=== PATIENT | female | born 1975 | race Caucasian/White ===

== ENCOUNTER 2019-11-12 12:21 | Outpatient (CLI) | payer MEDICAID ==
--- NOTE | 2019-11-13 08:55 | Mammography Report ---
Reason: ROUTINE MAMMO Procedure Date: 11/12/2019 Accession Number: [id number] / [id number] Procedure: MGN - Screening Mammo Dig Bilat CPT Code: Final Report FULL RESULT: EXAM: Screening Mammo Dig Bilat DATE: 11/12/2019 12:45 PM CLINICAL HISTORY: Screening encounter. Baseline exam. TECHNIQUE: (B) - Bilateral CC and MLO views were obtained. COMPARISON: None PARENCHYMAL PATTERN: (A) - The breast(s) demonstrate(s) scattered fibroglandular densities. FINDINGS: A 4 mm isodense well-circumscribed nodules in the upper outer right breast axillary tail, 15 cm from the nipple, with suggestion of fatty hilum on 2-D images may represents typically benign lymph nodes but is not fully characterized. Additional focused right breast ultrasound is recommended for confirmation. There are no suspicious masses, calcifications, or areas of distortion. IMPRESSION: Incomplete examination. BI-RADS category 0. RECOMMENDATION: (ADDUS) - Targeted ultrasound recommended. Right breast. BI-RADS CATEGORY: (0) - Incomplete Examination - need additional evaluation. STANDARD QUALIFYING STATEMENTS: 1. This examination was not reviewed with the aid of Computer-Aided Detection (CAD). 2. A negative or benign imaging report should not preclude biopsy if clinically suspicious findings are present. 3. Dense breasts may obscure an underlying neoplasm. 4. This examination was reviewed without the aid of 3D breast imaging (tomosynthesis).
== END 2019-11-12 12:22 | disposition home or self-care (01) ==
LOC: DI.N 12:21
DX: Z12.31 Encounter for screening mammogram for malignant neoplasm of breast (principal); N63.11 Unspecified lump in the right breast, upper outer quadrant
CPT/HCPCS: 77067

== ENCOUNTER 2019-12-18 14:26 | Outpatient (CLI) | payer MEDICAID ==
--- NOTE | 2019-12-18 16:47 | Ultrasound Report ---
Reason: ABN MAMMO - RT SPEC VIEW US Procedure Date: 12/18/2019 Accession Number: [id number] / [id number] Procedure: US - Breast Unilateral Limited CPT Code: Final Report FULL RESULT: EXAM: Breast Unilateral Limited DATE: 12/18/2019 3:38 PM CLINICAL HISTORY: ABN MAMMO - RT SPEC VIEW US COMPARISON: 11/12/2019. TECHNIQUE: Targeted ultrasound was performed of the right breast in the area of clinical concern at 11 o'clock and 14 cm distance from the nipple. Color Doppler was employed as appropriate. FINDINGS: Morphologically normal-appearing lymph nodes with normal hilar flow by limited color Doppler and preserved fatty greg with a maximum size of 2.2 x 1.1 x 1.4 cm are identified along the axillary tail, typically benign. IMPRESSION: Benign findings RECOMMENDATION: Recommend routine annual Screening mammography unless otherwise clinically indicated. BIRADS CATEGORY 2: Benign findings RADIA
== END 2019-12-18 14:27 | disposition home or self-care (01) ==
LOC: DI 14:26
PROVIDERS: ATTEND Nurse Practitioner Family
DX: R92.8 Other abnormal and inconclusive findings on diagnostic imaging of breast (principal)
CPT/HCPCS: 76642

== ENCOUNTER 2020-12-17 08:00 | Outpatient (CLI) | payer MEDICAID ==
[2020-12-17 13:08] LABS: BASOPHILS # (AUTO) 0.1 10^3/uL (0.0-0.1); BASOPHILS % (AUTO) 0.6 %; EOSINOPHILS # (AUTO) 0.3 10^3/uL (0.0-0.7); EOSINOPHILS % (AUTO) 3.1 %; HGB - HEMOGLOBIN 12.9 g/dL (12.0-16.0); LYMPHOCYTES # (AUTO) 2.8 10^3/uL (1.5-3.5); LYMPHOCYTES % (AUTO) 35.1 %; MEAN CORPUSCULAR HEMOGLOBIN 29.3 pg (27.0-31.0); MEAN CORPUSCULAR VOLUME 94.3 fL (81.0-99.0); MEAN PLATELET VOLUME 12.1 fL (7.9-10.8); MONOCYTES # (AUTO) 0.7 10^3/uL (0.0-1.0); MONOCYTES % (AUTO) 9.3 %; NEUTROPHILS # (AUTO) 4.1 10^3/uL (1.5-6.6); NEUTROPHILS % (AUTO) 51.6 %; PLT - PLATELET COUNT 216 10^3/uL (130-450); RED BLOOD COUNT 4.41 10^6/uL (4.20-5.40); RED CELL DISTRIBUTION WIDTH 14.1 % (12.0-15.0); WHITE BLOOD COUNT 7.9 x10^3/uL (4.8-10.8)
[2020-12-17 15:52] LABS: BILIRUBIN,TOTAL 0.2 mg/dL (0.2-1.0)
[2020-12-17 15:53] LABS: ALBUMIN 3.8 g/dL (3.2-5.5); ALBUMIN/GLOBULIN RATIO 0.9 (1.0-2.2); ALKALINE PHOSPHATASE 60 IU/L (42-121); ALT ALANINE AMINOTRANSFERASE 13 IU/L (10-60); AST ASPARTATE AMINOTRANSFERASE 25 IU/L (10-42); BUN - BLOOD UREA NITROGEN 14 mg/dL (6-20); CALCIUM 8.6 mg/dL (8.5-10.3); CARBON DIOXIDE - CO2 22 mmol/L (21-32); CHLORIDE 108 mmol/L (101-111); CHOL/HDL RATIO 4.4 (<4.4); CHOLESTEROL 220 mg/dL; GLUCOSE 90 mg/dL (70-100); HDL CHOLESTEROL 50 mg/dL; LDL CHOLESTEROL,CALCULATED 147 mg/dL; LDL/HDL RATIO 2.9 (<4.4); TOTAL PROTEIN 7.9 g/dL (6.7-8.2); VLDL CHOLESTEROL 23 mg/dL
== END 2020-12-17 23:59 | disposition home or self-care (01) ==
LOC: LAB.WCP 08:00
PROVIDERS: ATTEND Nurse Practitioner Family
DX: Z00.00 Encounter for general adult medical examination without abnormal findings (principal)
CPT/HCPCS: 36415; 80053; 80061; 83721; 84443; 85025

== ENCOUNTER 2021-01-05 17:15 | Outpatient (CLI) | payer MEDICAID | END 2021-01-05 17:16 | disposition home or self-care (01) | LOC: COV 17:15 | PROVIDERS: ATTEND Family Medicine | DX: R05 Cough (principal); R06.02 Shortness of breath; M79.10 Myalgia, unspecified site; R53.83 Other fatigue; R09.81 Nasal congestion; Z20.822 Contact with and (suspected) exposure to COVID-19 ==

== ENCOUNTER 2021-01-06 16:36 | Inpatient (IN) | payer MEDICAID ==
[2021-01-06] MEDS ORDERED: ALBUTEROL 1 PUFF INH STA (17:28)
--- NOTE | 2021-01-06 17:33 | ED Physician Documentation ---
History of Present Illness - Stated complaint Stated Complaint: SOA - Chief complaint Chief Complaint: Resp - Additonal information Additional information: 45-year-old female presents the emergency department for evaluation of shortness of air. She reports that yesterday morning she began to feel like she was getting a cold. She had a sore throat some body aches and chest pressure. She did have a COVID-19 screen completed yesterday that was negative. Patient denies fevers any recent travel. Denies a history of lung disease, asthma or COPD. On presentation patient was wheezy after exertion. On room air her saturations were 86 to 88%. She was placed on 4 L nasal cannula with resultant rise of the saturations to 9192%. Mild tachypnea with respiratory rate of about 24. No stridor not labored. PMH: bipolar d/o. denies HTN, DM SOC: + vaping Review of Systems Constitutional: reports: Chills, Myalgias. denies: Fever Eyes: reports: Reviewed and negative Ears: reports: Reviewed and negative Nose: reports: Congestion Throat: reports: Sore throat Cardiac: denies: Chest pain / pressure, Palpitations Respiratory: reports: Dyspnea, Cough, Wheezing. denies: Hemoptysis GI: denies: Abdominal Pain, Abdominal Swelling, Nausea, Vomiting : denies: Dysuria Skin: denies: Rash, Lesions Musculoskeletal: denies: Neck pain, Back pain, Extremity pain Neurologic: denies: Generalized weakness, Focal weakness, Numbness PD PAST MEDICAL HISTORY - Allergies Allergies/Adverse Reactions: Allergies Allergy/AdvReac Type Severity Reaction Status Date / Time No Known Drug Allergies Allergy Verified 01/06/21 16:44 - Social History Does the pt smoke?: No Smoking Status: Never smoker PD ED PE EXPANDED - General General: Alert, Anxious - Cardiac Cardiac: Regular Rhythm, Radial strong equal, Pedal strong equal, Cap refill < 2 sec. No: Murmur Present - Respiratory Respiratory: Wheezing, Other (tachypnea with crackles in dependent bases). No: Distress, Labored - Abdomen Abdomen: Normal Bowel sounds. No: Tender to palpation - Extremities Extremities: Normal. No: Deformity, Tenderness - Neuro Neuro: Alert and Oriented X 3, CNII-XII intact - GCS Eye Opening: Spontaneous Motor: Obeys Commands Verbal: Oriented Total: 15 Results - Vitals Vitals: Vital Signs - 24 hr 01/06/21 01/06/21 01/06/21 16:40 17:34 18:00 Temperature 36.3 C L 36.7 C Heart Rate 119 H 108 H 102 H Respiratory 14 23 8 L Rate Blood Pressure 110/68 130/86 H 104/91 H O2 Saturation 88 L 92 92 01/06/21 01/06/21 01/06/21 18:30 19:00 19:30 Temperature Heart Rate 99 99 96 Respiratory 27 H 26 H 24 Rate Blood Pressure 111/96 H 121/97 H 115/99 H O2 Saturation 90 L 90 L 90 L 01/06/21 20:00 Temperature Heart Rate 95 Respiratory 25 H Rate Blood Pressure 111/97 H O2 Saturation 94 Oxygen O2 Source Nasal cannula - EKG (time done) 1722 Rate: Rate (enter#) (105) Rhythm: Sinus tachycardia [place]: Normal Intervals: Normal SC QRS: Low voltage Ischemia: Normal ST segments Compare to prior EKG: Old EKG unavailable Computer interpretation: Agree with computer - Labs Labs: Laboratory Tests 01/06/21 01/06/21 01/06/21 17:26 17:29 17:29 WBC 17.5 H RBC 3.93 L Hgb 11.7 L Hct 36.4 L MCV 92.6 MCH 29.8 MCHC 32.1 RDW 13.6 Plt Count 222 MPV 10.9 H Neut # (Auto) 15.3 H Lymph # (Auto) 1.1 L Yates # (Auto) 0.9 Eos # (Auto) 0.0 Baso # (Auto) 0.1 Absolute Nucleated RBC 0.00 Nucleated RBC % 0.0 D-Dimer VBG pH VBG pCO2 VBG pO2 VBG HCO3 VBG Total CO2 VBG O2 Saturation VBG Base Excess Sodium 131 L Potassium 3.6 Chloride 99 L Carbon Dioxide 22 Anion Gap 10.0 BUN 12 Creatinine 0.9 Estimated GFR (MDRD) 68 L Glucose 127 H Lactic Acid Calcium 8.2 L Total Bilirubin 0.5 AST 28 ALT 21 Alkaline Phosphatase 53 Troponin I High Sens B-Natriuretic Peptide Total Protein 7.1 Albumin 3.2 Globulin 3.9 Albumin/Globulin Ratio 0.8 L Lipase 28 Urine Color Urine Clarity Urine pH Ur Specific [place] Urine Protein Urine Glucose (UA) Urine Ketones Urine Occult Blood Urine Nitrite Urine Bilirubin Urine Urobilinogen Ur Leukocyte Esterase Urine RBC Urine WBC Ur Squamous Epith Cells Urine Bacteria Ur Microscopic Review Urine Culture Comments Nasal Adenovirus (PCR) NOT DETECTED Nasal B. parapertussis DNA (PCR) NOT DETECTED Nasal Coronavir 229E PCR NOT DETECTED Nasal Coronavir HKU1 PCR NOT DETECTED Nasal Coronavir NL63 PCR NOT DETECTED Nasal Coronavir OC43 PCR NOT DETECTED Nasal Enterovir/Rhinovir PCR NOT DETECTED Nasal Influenza B PCR NOT DETECTED Nasal Influenza A PCR NOT DETECTED Nasal Parainfluen 1 PCR NOT DETECTED Nasal Parainfluen 2 PCR NOT DETECTED Nasal Parainfluen 3 PCR NOT DETECTED Nasal Parainfluen 4 PCR NOT DETECTED Nasal RSV (PCR) NOT DETECTED Nasal B.pertussis DNA PCR NOT DETECTED Nasal C.pneumoniae (PCR) NOT DETECTED [place] Human Metapneumo PCR NOT DETECTED Nasal M.pneumoniae (PCR) NOT DETECTED Nasal SARS-CoV-2 (PCR) NOT DETECTED 01/06/21 01/06/21 01/06/21 17:29 17:29 17:35 WBC RBC Hgb Hct MCV MCH MCHC RDW Plt Count MPV Neut # (Auto) Lymph # (Auto) Yates # (Auto) Eos # (Auto) Baso # (Auto) Absolute Nucleated RBC Nucleated RBC % D-Dimer VBG pH 7.326 VBG pCO2 37.6 L VBG pO2 75.9 H VBG HCO3 19.2 L VBG Total CO2 20.4 L VBG O2 Saturation 95.0 H VBG Base Excess -6.2 L Sodium Potassium Chloride Carbon Dioxide Anion Gap BUN Creatinine Estimated GFR (MDRD) Glucose Lactic Acid 2.0 Calcium Total Bilirubin AST ALT Alkaline Phosphatase Troponin I High Sens B-Natriuretic Peptide Total Protein Albumin Globulin Albumin/Globulin Ratio Lipase Urine Color YELLOW Urine Clarity HAZY Urine pH 5.0 Ur Specific [place] >=1.030 H Urine Protein 30 H Urine Glucose (UA) NEGATIVE Urine Ketones NEGATIVE Urine Occult Blood LARGE H Urine Nitrite NEGATIVE Urine Bilirubin NEGATIVE Urine Urobilinogen 2 H Ur Leukocyte Esterase NEGATIVE Urine RBC None Seen Urine WBC 0-3 Ur Squamous Epith Cells MANY Squamous H Urine Bacteria Many H Ur Microscopic Review INDICATED Urine Culture Comments NOT INDICATED Nasal Adenovirus (PCR) Nasal B. parapertussis DNA (PCR) Nasal Coronavir 229E PCR Nasal Coronavir HKU1 PCR Nasal Coronavir NL63 PCR Nasal Coronavir OC43 PCR Nasal Enterovir/Rhinovir PCR Nasal Influenza B PCR Nasal Influenza A PCR Nasal Parainfluen 1 PCR Nasal Parainfluen 2 PCR Nasal Parainfluen 3 PCR Nasal Parainfluen 4 PCR Nasal RSV (PCR) Nasal B.pertussis DNA PCR Nasal C.pneumoniae (PCR) Jeffry Human Metapneumo PCR Nasal M.pneumoniae (PCR) Nasal SARS-CoV-2 (PCR) 01/06/21 01/06/21 01/06/21 17:39 17:39 17:42 WBC RBC Hgb Hct MCV MCH MCHC RDW Plt Count MPV Neut # (Auto) Lymph # (Auto) Yates # (Auto) Eos # (Auto) Baso # (Auto) Absolute Nucleated RBC Nucleated RBC % D-Dimer 855.7 H VBG pH VBG pCO2 VBG pO2 VBG HCO3 VBG Total CO2 VBG O2 Saturation VBG Base Excess Sodium Potassium Chloride Carbon Dioxide Anion Gap BUN Creatinine Estimated GFR (MDRD) Glucose Lactic Acid Calcium Total Bilirubin AST ALT Alkaline Phosphatase Troponin I High Sens 59.2 H* B-Natriuretic Peptide 159 H Total Protein Albumin Globulin Albumin/Globulin Ratio Lipase Urine Color Urine Clarity Urine pH Ur Specific [place] Urine Protein Urine Glucose (UA) Urine Ketones Urine Occult Blood Urine Nitrite Urine Bilirubin Urine Urobilinogen Ur Leukocyte Esterase Urine RBC Urine WBC Ur Squamous Epith Cells Urine Bacteria Ur Microscopic Review Urine Culture Comments Nasal Adenovirus (PCR) Nasal B. parapertussis DNA (PCR) Nasal Coronavir 229E PCR Nasal Coronavir HKU1 PCR Nasal Coronavir NL63 PCR Nasal Coronavir OC43 PCR Nasal Enterovir/Rhinovir PCR Nasal Influenza B PCR Nasal Influenza A PCR Nasal Parainfluen 1 PCR Nasal Parainfluen 2 PCR Nasal Parainfluen 3 PCR Nasal Parainfluen 4 PCR Nasal RSV (PCR) Nasal B.pertussis DNA PCR Nasal C.pneumoniae (PCR) [place] Human Metapneumo PCR Nasal M.pneumoniae (PCR) Nasal SARS-CoV-2 (PCR) - Rads (name of study) CXR Radiology: Final report received (Mild acute CHF pattern. Heart size at or just above the upper limits of normal.) CT pulmonary angio Radiology: Final report received (No pulmonary embolus. Negative evaluation of the aorta. Moderate bilateral bronchopneumonia trace parapneumonic effusions. Hiatal hernia. Presumably reactive mediastinal and hilar lymph node enlargement.) PD MEDICAL DECISION MAKING - ED course Complexity details: reviewed results, re-evaluated patient, considered differential, d/w patient ED course: 45-year-old female presents to the emergency department with shortness of air and wheeze. She began to feel like she was getting a cold yesterday afternoon. She did have outpatient Covid screening which was negative. However on pres entation here she was noted to be somewhat tachypneic on initial presentation and had an expiratory wheeze after exertion that resolved with bed rest. Unfortunately she was hypoxic on room air with a saturation of 86%. 4 L oxygen nasal cannula improved her saturations to 90-91%%. Screening x-ray suggests an early CHF pattern with mild cardiomegaly. Her BNP is just above 150. EKG was sinus tach without ischemic changes and her high- sensitivity troponin was 50. She is also noted to have moderate leukocytosis with a white count of almost 18,000. Lactate was not elevated. Given this CHF pattern on chest x-ray as well as early hypoxia I did proceed to do a CT pulmonary angio to rule out a PE and right heart strain that could be causing the symptoms. Reassuringly the CT did not show any pulmonary embolus however it is suggestive of bilateral bronchopneumonia and para pneumonic effusions. Given CHF picture pt was given 40 mg lasix in the ED. Though the CXR is more suggestive of a viral pneumonitis pattern, we did also give ceftriaxone and azithromycin. Pt will be admitted to the hospital for acute hypoxia, CHF and soa. I have spoken with Dr. Verduzco who agrees to admit patient. Departure - Departure Disposition: 66 [facility] DC/Xfer Clinical Impression: Hypoxia, Elevated troponin CHF (congestive heart failure) Qualifiers: Heart failure type: unspecified Heart failure chronicity: acute Qualified Code(s): I50.9 - Heart failure, unspecified
--- NOTE | 2021-01-06 17:37 | XRAY Report ---
PROCEDURE: Chest 1 View X-Ray INDICATIONS: hypoxia TECHNIQUE: One view of the chest was acquired. COMPARISON: None FINDINGS: Surgical changes and devices: None. Lungs and pleura: No pleural effusions or pneumothorax. Lungs are abnormal with a mild edema patter n throughout.. Mediastinum: Mediastinal contours appear normal. Heart size is at or just above the upper limits of normal. Bones and chest wall: No suspicious bony lesions. Overlying soft tissues appear unremarkable. IMPRESSION: Mild acute CHF pattern. Heart size at or just above the upper limits of normal. Reviewed by: Edilberto Thomas MD on 01/06/2021 4:36 PM [facility] Approved by: Edilberto Thomas MD on 01/06/2021 4:36 PM [facility] Station ID: [id number]
[2021-01-06] MEDS ORDERED: IOVERSOL 320 100 ML VIAL IVP ONE ×3 (17:39→19:07)
[2021-01-06 17:42] LABS: BASOPHILS # (AUTO) 0.1 10^3/uL (0.0-0.1); BASOPHILS % (AUTO) 0.3 %; EOSINOPHILS % (AUTO) 0.1 %; HCT - HEMATOCRIT 36.4 % (37.0-47.0); HGB - HEMOGLOBIN 11.7 g/dL (12.0-16.0); LYMPHOCYTES # (AUTO) 1.1 10^3/uL (1.5-3.5); LYMPHOCYTES % (AUTO) 6.1 %; MEAN CORPUSCULAR HEMOGLOBIN 29.8 pg (27.0-31.0); MEAN CORPUSCULAR HGB CONC 32.1 g/dL (32.0-36.0); MEAN CORPUSCULAR VOLUME 92.6 fL (81.0-99.0); MEAN PLATELET VOLUME 10.9 fL (7.9-10.8); MONOCYTES # (AUTO) 0.9 10^3/uL (0.0-1.0); MONOCYTES % (AUTO) 5.4 %; NEUTROPHILS # (AUTO) 15.3 10^3/uL (1.5-6.6); NEUTROPHILS % (AUTO) 87.5 %; PLT - PLATELET COUNT 222 10^3/uL (130-450); RED BLOOD COUNT 3.93 10^6/uL (4.20-5.40); RED CELL DISTRIBUTION WIDTH 13.6 % (12.0-15.0); VBG BASE EXCESS -6.2 mmol/L (-2 - +2); VBG HCO3 19.2 mmol/L (23-28); VBG PCO2 37.6 mmHg (41-51); VBG PH 7.326 (7.31-7.41); VBG PO2 75.9 mmHg (25-47); VBG TOTAL CO2 20.4 mmol/L (24-29); WHITE BLOOD COUNT 17.5 x10^3/uL (4.8-10.8)
[2021-01-06 17:57] LABS: ALBUMIN 3.2 g/dL (3.2-5.5); ALBUMIN/GLOBULIN RATIO 0.8 (1.0-2.2); BILIRUBIN,TOTAL 0.5 mg/dL (0.2-1.0); CALCIUM 8.2 mg/dL (8.5-10.3); CREATININE 0.9 mg/dL (0.4-1.0); POTASSIUM 3.6 mmol/L (3.5-5.0); TOTAL PROTEIN 7.1 g/dL (6.7-8.2)
[2021-01-06 18:38] LABS: BILIRUBIN,URINE NEGATIVE (NEGATIVE); GLUCOSE, URINE (UA) NEGATIVE (NEGATIVE); KETONES,URINE (UA) NEGATIVE (NEGATIVE); LEUKOCYTE ESTERASE, URINE NEGATIVE (NEGATIVE); NITRITE,URINE NEGATIVE (NEGATIVE); OCCULT BLOOD,URINE LARGE (NEGATIVE); PROTEIN,URINE 30 mg/dL (NEGATIVE); UROBILINOGEN,URINE 2 E.U./dL (NORMAL)
[2021-01-06 18:51] LABS: CLARITY,URINE HAZY (CLEAR)
[2021-01-06 18:53] LABS: BACTERIA,URINE Many /HPF (None Seen); RBC,URINE None Seen /HPF (0-5); SQUAMOUS EPITHELIAL CELL,UR MANY Squamous (<= Few); WBC,URINE 0-3 /HPF (0-5)
[2021-01-06 18:54] LABS: B. PARAPERTUSSIS- RESP PCR PAN NOT DETECTED; B. PERTUSSIS- RESP PCR PANEL NOT DETECTED; C. PNEUMONIAE- RESP PCR PANEL NOT DETECTED; CORONAVIRUS 229E-RESP PCR NOT DETECTED; CORONAVIRUS HKU1-RESP PCR NOT DETECTED; CORONAVIRUS NL63-RESP PCR NOT DETECTED; CORONAVIRUS OC43-RESP PCR NOT DETECTED; HUMAN METAPNEUMOVIRUS NOT DETECTED; INFLUENZA A- RESP PCR PANEL NOT DETECTED; INFLUENZA B - RESP PCR PANEL NOT DETECTED; M. PNEUMONIAE- RESP PCR PANEL NOT DETECTED; PARAINFLUENZA VIRUS 1 NOT DETECTED; PARAINFLUENZA VIRUS 2 NOT DETECTED; PARAINFLUENZA VIRUS 3 NOT DETECTED; PARAINFLUENZA VIRUS 4 NOT DETECTED; RHINOVIRUS/ENTEROVIRUS NOT DETECTED; RSV- RESP PCR PANEL NOT DETECTED; SARS-CoV-2 -RESP PCR PANEL NOT DETECTED
--- NOTE | 2021-01-06 19:26 | CT Report ---
PROCEDURE: CT angiography of the with contrast. INDICATIONS: hypoxia; CHF; r/o PE CONTRAST: IV CONTRAST: Optiray 320 ml: 80 PO CONTRAST: *NO PO CONTRAST TECHNIQUE: After the administration of intravenous contrast, 2 mm thick sections acquired from the pulmonary api dann to the posterior costophrenic angles. 3-dimensional maximum intensity projection (MIP) coronal a nd sagittal reformats were then acquired through the thorax. For radiation dose reduction, the follow ing was used: automated exposure control, adjustment of mA and/or kV according to patient size. COMPARISON: Chest x-ray dated 01/06/2021 FINDINGS: Image quality: Excellent. Pulmonary arteries: Pulmonary arteries are normal in size, and demonstrate no intraluminal filling d efects to suggest central pulmonary embolism. chest Lungs and pleura: Bilateral moderate diffuse bronchial wall thickening is present. There is moderate diffuse groundglass pulmonary opacity, as well as thickening of the interlobular septae. No pneumotho rax. Trace bilateral pleural effusions. Central and peripheral airways are patent. Mediastinum: Heart size is normal, without pericardial effusion. Mildly enlarged mediastinal and sub carinal lymph nodes, largest of which is in the subcarinal location measuring 15 mm short axis. Thora cic aorta is normal in caliber and enhancement. Esophagus is normal in caliber. Moderate hiatal ankita ia. Bones and chest wall: No suspicious bony lesions. Ribs and thoracic spine appear intact through out. The thyroid is normal. No axillary or supraclavicular adenopathy. Abdomen: Visualized upper abdominal solid organs appear normal in the early arterial phase of enhanc ement. IMPRESSION: 1. No pulmonary embolus. Negative evaluation of the aorta. 2. Moderate bilateral bronchopneumonia trace parapneumonic effusions. 3. Hiatal hernia. 4. Presumably reactive mediastinal and hilar lymph node enlargement. Follow-up chest CT with contrast in 3 months is recommended to ensure resolution, and to exclude underlying neoplasm. Reviewed by: Jeanie Ng MD on 01/06/2021 7:25 PM PST Approved by: Jeanie Ng MD on 01/06/2021 7:25 PM PST Station ID: [id number]
[2021-01-06] MEDS ORDERED: FUROSEMIDE 40 MG/4 ML VIAL IVP STA (19:55)
[2021-01-06] MEDS ORDERED: AZITHROMYCIN INJ 500 MG in SODIUM CHLORIDE 0.9% 250 ML IV STA (19:58)
[2021-01-06] MEDS ORDERED: cefTRIAXone 1 GM in SODIUM CHLORIDE 0.9% MINIBAG 100 ML IV STA (19:58)
[2021-01-06] MEDS ORDERED: cefTRIAXone 1 GM VIAL ONE (20:31)
[2021-01-06] MEDS ORDERED: ONDANSETRON 4 MG/2 ML VIAL IVP PRN (20:46)
[2021-01-06] MEDS ORDERED: SODIUM CHLORIDE FLUSH 0.9% 10 ML SYRINGE IVP PRN (20:46)
[2021-01-06] MEDS ORDERED: LEVALBUTEROL 1.25 MG/3 ML NEB INH PRN (20:56)
[2021-01-06] MEDS: SODIUM CHLORIDE 0.9% 1,000 ML IV SCH (22:25)
[2021-01-06] MEDS: FAMOTIDINE 20 MG TABLET PO SCH (22:25)
[2021-01-06] MEDS: ACETAMINOPHEN 325 MG TABLET PO PRN (22:25)
[2021-01-06] MEDS: QUEtiapine 25 MG TABLET PO SCH (23:44)
[2021-01-06] MEDS: SODIUM CHLORIDE FLUSH 0.9% 10 ML SYRINGE IVP SCH (23:47)
--- NOTE | 2021-01-07 00:54 | HISTORY & PHYSICAL EXAMINATION ---
DATE OF SERVICE: 01/06/2021 Physician: Fanny Brandon MD HISTORY OF PRESENT ILLNESS: This is a 45-year-old white female with a history of anxiety for which she takes Seroquel at night. She has a history of alcohol abuse, reports that she used to drink daily. She states she was in a very bad marriage and this caused the drinking, along with stress at work. She is now one year and is in a relationship with a new significant other and has had no alcohol intake for about a year, thanks to his support. She moved to [place] about a year ago, to take care of a new grandchild and help her daughter, [email or web address]. The patient presents with two days of upper respiratory symptoms including a cough, hoarseness, sputum production, nasal congestion with nasal discharge, and fatigue, for which she underwent COVID testing yesterday and came back negative. Today, she had continued symptoms, plus was short of breath and presented to the emergency room. In the ER, she was documented to have an oxygen saturation on room of 86%. Exam in the ER showed that she was wheezing and had crackles, and was tachypneic with a respiratory rate of 25. She underwent testing showing that she was COVID negative again today, chest x-ray showing CHF vs bilateral interstitial infiltrates. She had a D-dimer that was elevated, and underwent a CTA chest that showed no evidence of pulmonary embolism, but the findings in both lungs were read as having bilateral bronchopneumonia. The patient is being admitted to inpatient status for empiric IV antibiotics for bilateral bronchopneumonia, which is likely atypical viral pneumonia, and needing supplemental oxygen treatment, but is COVID negative. PAST MEDICAL HISTORY 1. Alcohol abuse, but with no alcohol intake over the past one year. 2. Anxiety for which she is on Seroquel at bedtime. ALLERGIES: NONE. MEDICATIONS: Seroquel 50 mg daily. Mucinex OTC. The full medication list has not yet been reconciled by Pharmacy. FAMILY HISTORY: No inherited diseases. SOCIAL HISTORY: The patient vapes, but does not smoke, she has had no alcohol intake for one year. There is no illicit drug use history. 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 REVIEW OF SYSTEMS: She denies having had a fever, she has never had symptoms like this before. She has not had a known COVID exposure. A comprehensive review of systems was performed and the pertinent positives are listed, the rest are negative. PHYSICAL EXAM GENERAL: Middle-aged white female, who is in no respiratory distress at rest and has a hoarse voice and wet cough. VITAL SIGNS: Blood pressure 102/91, pulse 119 in sinus rhythm, now heart rate is down to 95. She is afebrile. Respiratory rate was as high as 27 and is now down to 18 and O2 saturation was 86% on room air, now up to 95% on 4 liters oxygen by nasal cannula. HEENT: Reveals moist oral mucosa. Her voice is hoarse. NECK: No JVD. CHEST: No wheezing currently, good air movement, but has scattered rhonchi. No rales. HEART: No murmurs or gallop. ABDOMEN: Soft, nontender. No organomegaly. EXTREMITIES: No clubbing, cyanosis or edema. NEUROLOGIC: Grossly intact. LABORATORY DATA: Sodium 131, potassium 3.6, glucose 127. Lactic acid 2.0 and on repeat 1.6. Troponin 59 and on repeat 68. BNP 159. Normal liver tests. White blood count elevated at 17.5, hemoglobin 11.7, platelet count normal at 222. No INR was done. D-dimer was 855. Venous blood gas had a pH of 7.32 and a pCO2 of 37. Urinalysis showed specific gravity greater than 1.03 with high protein, large occult blood, high urobilinogen, but many squamous cells. Her [employer] test was negative for everything including COVID. EKG: Sinus tachycardia at rate of 105, low voltage in all leads, T-wave flattening in the inferior leads. There is no old EKG for comparison. IMAGING: Chest x-ray showed possible CHF pattern and heart size upper limits of normal. CTA of the chest showed no pulmonary embolus and negative aortic evaluation, moderate bilateral bronchopneumonia and trace parapneumonic effusions. Also present was a hiatal hernia and presumed reactive mediastinal and hilar lymph nodes that are enlarged, and a follow-up chest CT was advised. IMPRESSION/DIAGNOSES 1. Acute respiratory failure with hypoxia. 2. Bilateral bronchopneumonia, probably viral in its presentation with nasal discharge, but consider community acquired bacterial pneumonia. 3. Hyponatremia. 4. Elevated troponin. 5. Anemia. 6. Vapes. PLAN: Admit this patient to inpatient status on telemetry. She got Lasix in the ER because of the first impression on chest x-ray of CHF and mildly increased BNP, but by exam, she is euvolemic or hypovolemic with probable hypovolemic hyponatremia. Therefore, we will start gentle IV fluids and give no more Lasix. We will continue with the empiric IV ceftriaxone and give oral Zithromax for a full course of 1500 mg. Obtain sputum culture. Continue with Mucinex for pulmonary toilet. Taper down oxygen as tolerated. Follow her magnesium because of getting a Lasix dose. Plan was to cycle troponins, but with two done that are not doubling, she has ruled out for an SD. Obtain an Echocardiogram to establish LV and RV contractility because of the suspicion of congestive heart failure. Continue with nebulizers p.r.n. because of the wheezing. Tobacco use is not advised and we will give a nicotine patch p.r.n. nicotine urges. Follow her CBC, white blood count and hemoglobin and follow her electrolytes for hopeful correction of the low sodium. DEEP VENOUS THROMBOSIS PROPHYLAXIS: SCDs. CODE STATUS: FULL CODE. ATTESTATION: Patient is expected to be discharged or transferred to another facility within 96 hours: Yes. cc: MALOU Brumfield TD: 01/06/2021 23:35 MTDD
[2021-01-07 05:04] LABS: BASOPHILS % (AUTO) 0.2 %; EOSINOPHILS % (AUTO) 0.1 %; HCT - HEMATOCRIT 32.6 % (37.0-47.0); HGB - HEMOGLOBIN 10.4 g/dL (12.0-16.0); LYMPHOCYTES # (AUTO) 1.6 10^3/uL (1.5-3.5); MEAN CORPUSCULAR HEMOGLOBIN 29.8 pg (27.0-31.0); MEAN CORPUSCULAR HGB CONC 31.9 g/dL (32.0-36.0); MEAN CORPUSCULAR VOLUME 93.4 fL (81.0-99.0); MEAN PLATELET VOLUME 11.5 fL (7.9-10.8); MONOCYTES # (AUTO) 0.9 10^3/uL (0.0-1.0); MONOCYTES % (AUTO) 7.9 %; NEUTROPHILS # (AUTO) 8.7 10^3/uL (1.5-6.6); NEUTROPHILS % (AUTO) 77.5 %; PLT - PLATELET COUNT 214 10^3/uL (130-450); RED BLOOD COUNT 3.49 10^6/uL (4.20-5.40); RED CELL DISTRIBUTION WIDTH 13.7 % (12.0-15.0); WHITE BLOOD COUNT 11.2 x10^3/uL (4.8-10.8)
[2021-01-07 05:19] LABS: CALCIUM 8.1 mg/dL (8.5-10.3); CREATININE 0.7 mg/dL (0.4-1.0); MAGNESIUM 1.8 mg/dL (1.7-2.8); POTASSIUM 3.1 mmol/L (3.5-5.0)
--- NOTE | 2021-01-07 07:28 | PROVIDER PROGRESS NOTE ---
Assessment/Plan - Problem List (1) Bronchopneumonia Assessment/Plan: Patient is on Rocephin and azithromycin IV. Will continue. Patient's white blood cell count improved from 17.5 down to 11.2. Patient is breathing comfortably on room air with O2Sat at 100%. DuoNeb breathing treatments ordered as needed. (2) Elevated troponin Assessment/Plan: Possibly due to demand ischemia. Troponin trend was 59.2, 68.8 and 31.5 respectively. Patient's BNP was 227. 2D echocardiogram pending. (3) Acute respiratory failure with hypoxia Assessment/Plan: Likely secondary to pneumonia. We will also rule out any cardiac cause with a 2D echocardiogram. CT angiogram of the chest was negative for PE. - Current Meds Current Meds: Current Medications Generic Name Dose Route Start Last Admin Trade Name Freq PRN Reason Stop Dose Admin Acetaminophen 650 mg 01/06/21 20:46 01/06/21 22:25 Acetaminophen 325 Mg Tablet PO 650 mg Q4HR PRN Administration Pain or Fever > 38C (100.4F) Famotidine 20 mg 01/06/21 21:00 01/06/21 22:25 Famotidine 20 Mg Tablet PO 20 mg BID VON Administration Sodium Chloride 1,000 mls @ 40 mls/hr 01/06/21 21:00 01/06/21 22:25 Normal Saline 0.9% IV 40 mls/hr .Q25H VON Administration Quetiapine Fumarate 50 mg 01/06/21 22:31 01/06/21 23:44 Quetiapine 25 Mg Tablet PO 50 mg QPM VON Administration Sodium Chloride 10 ml 01/07/21 01:00 01/06/21 23:47 Sodium Chloride Flush 0.9% 10 Ml Syringe IVP Not Given 0100,0900,1700 VON - Lab Result Fish Bone Diagrams: 01/07/21 04:17 01/07/21 04:17 Subjective - Subjective Patient Reports: Other (Patient resting comfortably in bed at time of exam. She is breathing comfortably on room air. She has mild crackles on auscultation of the left lungs. She also reports feeling mild chest tightness. She denies any other symptoms.) Objective Vital Signs: Vital Signs - 24 hr 01/06/21 01/06/21 01/06/21 16:40 17:34 18:00 Temperature 36.3 C L 36.7 C Heart Rate 119 H 108 H 102 H Heart Rate [ Brachial] Respiratory 14 23 8 L Rate Blood Pressure 110/68 130/86 H 104/91 H Blood Pressure [Left Brachial artery] O2 Saturation 88 L 92 92 01/06/21 01/06/21 01/06/21 18:30 19:00 19:30 Temperature Heart Rate 99 99 96 Heart Rate [ Brachial] Respiratory 27 H 26 H 24 Rate Blood Pressure 111/96 H 121/97 H 115/99 H Blood Pressure [Left Brachial artery] O2 Saturation 90 L 90 L 90 L 01/06/21 01/06/21 01/06/21 20:00 20:30 21:00 Temperature Heart Rate 95 85 95 Heart Rate [ Brachial] Respiratory 25 H 26 H 24 Rate Blood Pressure 111/97 H 124/88 H 102/91 H Blood Pressure [Left Brachial artery] O2 Saturation 94 95 92 01/06/21 01/07/21 01/07/21 21:57 00:00 04:42 Temperature 37.2 C 37.1 C 36.9 C Heart Rate Heart Rate [ 96 80 74 Brachial] Respiratory 18 18 18 Rate Blood Pressure Blood Pressure 115/77 106/67 97/66 [Left Brachial artery] O2 Saturation 98 94 94 01/07/21 06:32 Temperature 37.1 C Heart Rate 80 Heart Rate [ Brachial] Respiratory 18 Rate Blood Pressure Blood Pressure [Left Brachial artery] O2 Saturation 94 Oxygen O2 Source Room air I&O (Last 24 Hrs): Intake and Output Totals x24h 01/05/21 01/06/21 01/07/21 23:59 23:59 23:59 Intake Total 830 Output Total 900 Balance -70 General: Alert, Oriented x3, No acute distress HEENT: PERRLA, EOMI Neck: Supple, No JVD Neuro: Alert, Non Focal, Oriented Times 3 Cardiovascular: Regular rate Respiratory: Chest non-tender, Other (mild crackles on left side of lungs.) Abdomen: Normal bowel sounds, Soft, No tenderness, No masses Extremities: No clubbing, No edema Skin: No rashes, No breakdown - Results Results: Laboratory Results WBC 11.2 x10^3/uL (4.8-10.8) H 01/07/21 04:17 RBC 3.49 10^6/uL (4.20-5.40) L 01/07/21 04:17 Hgb 10.4 g/dL (12.0-16.0) L 01/07/21 04:17 Hct 32.6 % (37.0-47.0) L 01/07/21 04:17 MCV 93.4 fL (81.0-99.0) 01/07/21 04:17 MCH 29.8 pg (27.0-31.0) 01/07/21 04:17 MCHC 31.9 g/dL (32.0-36.0) L 01/07/21 04:17 RDW 13.7 % (12.0-15.0) 01/07/21 04:17 Plt Count 214 10^3/uL (130-450) 01/07/21 04:17 MPV 11.5 fL (7.9-10.8) H 01/07/21 04:17 Neut # (Auto) 8.7 10^3/uL (1.5-6.6) H 01/07/21 04:17 Lymph # (Auto) 1.6 10^3/uL (1.5-3.5) 01/07/21 04:17 [place]more # (Auto) 0.9 10^3/uL (0.0-1.0) 01/07/21 04:17 Eos # (Auto) 0.0 10^3/uL (0.0-0.7) 01/07/21 04:17 Baso # (Auto) 0.0 10^3/uL (0.0-0.1) 01/07/21 04:17 Absolute Nucleated RBC 0.00 x10^3/uL 01/07/21 04:17 Nucleated RBC % 0.0 /100WBC 01/07/21 04:17 D-Dimer 855.7 ng/mL (200.0-255.0) H 01/06/21 17:42 VBG pH 7.326 (7.31-7.41) 01/06/21 17:29 VBG pCO2 37.6 mmHg (41-51) L 01/06/21 17:29 VBG pO2 75.9 mmHg (25-47) H 01/06/21 17:29 VBG HCO3 19.2 mmol/L (23-28) L 01/06/21 17:29 VBG Total CO2 20.4 mmol/L (24-29) L 01/06/21 17:29 VBG O2 Saturation 95.0 % (60-80) H 01/06/21 17:29 VBG Base Excess -6.2 mmol/L (-2 - +2) L 01/06/21 17:29 Sodium 132 mmol/L (135-145) L 01/07/21 04:17 Potassium 3.1 mmol/L (3.5-5.0) L 01/07/21 04:17 Chloride 100 mmol/L (101-111) L 01/07/21 04:17 Carbon Dioxide 24 mmol/L (21-32) 01/07/21 04:17 Anion Gap 8.0 (6-13) 01/07/21 04:17 BUN 11 mg/dL (6-20) 01/07/21 04:17 Creatinine 0.7 mg/dL (0.4-1.0) 01/07/21 04:17 Estimated GFR (MDRD) 90 (>89) 01/07/21 04:17 Glucose 95 mg/dL (70-100) 01/07/21 04:17 Lactic Acid 1.6 mmol/L (0.5-2.2) 01/06/21 20:45 Calcium 8.1 mg/dL (8.5-10.3) L 01/07/21 04:17 Magnesium 1.8 mg/dL (1.7-2.8) 01/07/21 04:17 Total Bilirubin 0.5 mg/dL (0.2-1.0) 01/06/21 17:29 AST 28 IU/L (10-42) 01/06/21 17:29 ALT 21 IU/L (10-60) 01/06/21 17:29 Alkaline Phosphatase 53 IU/L (42-121) 01/06/21 17:29 Troponin I High Sens 31.5 ng/L (2.3-14.8) H* 01/07/21 04:17 B-Natriuretic Peptide 227 pg/mL (5-100) H 01/07/21 04:17 Total Protein 7.1 g/dL (6.7-8.2) 01/06/21 17:29 Albumin 3.2 g/dL (3.2-5.5) 01/06/21 17: Globulin 3.9 g/dL (2.1-4.2) 01/06/21 17: Albumin/Globulin Ratio 0.8 (1.0-2.2) L 01/06/21 17:29 Lipase 28 U/L (22-51) 01/06/21 17:29 Urine Color YELLOW 01/06/21 17:35 Urine Clarity HAZY (CLEAR) 01/06/21 17:35 Urine pH 5.0 PH (5.0-7.5) 01/06/21 17:35 Ur Specific [place] >=1.030 (1.002-1.030) H 01/06/21 17:35 Urine Protein 30 mg/dL (NEGATIVE) H 01/06/21 17:35 Urine Glucose (UA) NEGATIVE mg/dL (NEGATIVE) 01/06/21 17:35 Urine Ketones NEGATIVE mg/dL (NEGATIVE) 01/06/21 17:35 Urine Occult Blood LARGE (NEGATIVE) H 01/06/21 17:35 Urine Nitrite NEGATIVE (NEGATIVE) 01/06/21 17:35 Urine Bilirubin NEGATIVE (NEGATIVE) 01/06/21 17:35 Urine Urobilinogen 2 E.U./dL (NORMAL) H 01/06/21 17:35 Ur Leukocyte Esterase NEGATIVE (NEGATIVE) 01/06/21 17:35 Urine RBC None Seen /HPF (0-5) 01/06/21 17:35 Urine WBC 0-3 /HPF (0-5) 01/06/21 17:35 Ur Squamous Epith Cells MANY Squamous (<= Few) H 01/06/21 17:35 Urine Bacteria Many /HPF (None Seen) H 01/06/21 17:35 Ur Microscopic Review INDICATED 01/06/21 17:35 Urine Culture Comments NOT INDICATED 01/06/21 17:35 Nasal Adenovirus (PCR) NOT DETECTED 01/06/21 17:26 Nasal B. parapertussis DNA (PCR) NOT DETECTED 01/06/21 17:26 Nasal Coronavir 229E PCR NOT DETECTED 01/06/21 17:26 Nasal Coronavir HKU1 PCR NOT DETECTED 01/06/21 17:26 Nasal Coronavir NL63 PCR NOT DETECTED 01/06/21 17:26 Nasal Coronavir OC43 PCR NOT DETECTED 01/06/21 17:26 Nasal Enterovir/Rhinovir PCR NOT DETECTED 01/06/21 17:26 Nasal Influenza B PCR NOT DETECTED 01/06/21 17:26 Nasal Influenza A PCR NOT DETECTED 01/06/21 17:26 Nasal Parainfluen 1 PCR NOT DETECTED 01/06/21 17:26 Nasal Parainfluen 2 PCR NOT DETECTED 01/06/21 17:26 Nasal Parainfluen 3 PCR NOT DETECTED 01/06/21 17:26 Nasal Parainfluen 4 PCR NOT DETECTED 01/06/21 17:26 Nasal RSV (PCR) NOT DETECTED 01/06/21 17:26 Nasal B.pertussis DNA PCR NOT DETECTED 01/06/21 17:26 Nasal C.pneumoniae (PCR) NOT DETECTED 01/06/21 17:26 Jeffry Human Metapneumo PCR NOT DETECTED 01/06/21 17:26 Nasal M.pneumoniae (PCR) NOT DETECTED 01/06/21 17:26 Nasal SARS-CoV-2 (PCR) NOT DETECTED 01/06/21 17:26 ABX Reporting Has patient been on IV antibiotics over the past 48 hours?: Yes
[2021-01-07] MEDS ORDERED: POTASSIUM CHLORIDE 20 MEQ TABLET PO ONE (07:29)
[2021-01-07] MEDS ORDERED: MAGNESIUM SULFATE 2 GRAM 2 GM/50 ML BAG IV ONE (07:30)
[2021-01-07] MEDS ORDERED: NICOTINE 14 MG PATCH TOP PRN (09:00)
[2021-01-07] MEDS: AZITHROMYCIN 250 MG TABLET PO SCH (09:49)
[2021-01-07] MEDS: guaiFENesin 600 MG TABLET PO SCH ×2 (09:50→20:55)
[2021-01-07] MEDS: FAMOTIDINE 20 MG TABLET PO SCH ×2 (09:50→20:54)
[2021-01-07] MEDS: cefTRIAXone 2 GM in SODIUM CHLORIDE 0.9% MINIBAG 100 ML IV SCH (10:48)
[2021-01-07] MEDS: SODIUM CHLORIDE FLUSH 0.9% 10 ML SYRINGE IVP SCH ×2 (10:48→19:06)
[2021-01-07] MEDS: ACETAMINOPHEN 325 MG TABLET PO PRN ×2 (10:52→21:29)
--- NOTE | 2021-01-07 11:46 | PHARMACY PROGRESS NOTE ---
- Best Possible Medication History Admit Date and Time: 01/06/212036 Processed by: Pharmacy Medication History completed: Yes Patient Interview: Completed Secondary Source(s): Physician records, Pharmacy records, Insurance records (PATIENT INTERVIEWED BY AMUSEMENT OR RECREATION CARD CHECKER. PATIENT ABLE TO CONFIRM HOME MEDICATIONS ) As the person ultimately responsible for medication therapy, providers are able to order a medication from an existing home medication list in [facility] via the "Reconcile Routine" prior to Confirmation of that medication by learning support aide. Such practice is discouraged except when the physician, in their clinical judgment, deems that a medical need exists for a medication without regard to previous use.
[2021-01-07] MEDS ORDERED: CALCIUM CARBONATE CHEW 500 MG TABLET PO PRN (18:47)
[2021-01-07] MEDS: QUEtiapine 25 MG TABLET PO SCH (20:54)
[2021-01-08] MEDS: SODIUM CHLORIDE FLUSH 0.9% 10 ML SYRINGE IVP SCH ×2 (00:27→09:17)
[2021-01-08] MEDS: SODIUM CHLORIDE 0.9% 1,000 ML IV SCH (01:34)
[2021-01-08 05:12] LABS: BASOPHILS # (AUTO) 0.1 10^3/uL (0.0-0.1); BASOPHILS % (AUTO) 0.7 %; EOSINOPHILS # (AUTO) 0.3 10^3/uL (0.0-0.7); EOSINOPHILS % (AUTO) 4.8 %; HCT - HEMATOCRIT 33.3 % (37.0-47.0); HGB - HEMOGLOBIN 10.4 g/dL (12.0-16.0); LYMPHOCYTES # (AUTO) 2.8 10^3/uL (1.5-3.5); LYMPHOCYTES % (AUTO) 39.5 %; MEAN CORPUSCULAR HEMOGLOBIN 29.5 pg (27.0-31.0); MEAN CORPUSCULAR HGB CONC 31.2 g/dL (32.0-36.0); MEAN CORPUSCULAR VOLUME 94.3 fL (81.0-99.0); MEAN PLATELET VOLUME 11.4 fL (7.9-10.8); MONOCYTES # (AUTO) 0.7 10^3/uL (0.0-1.0); MONOCYTES % (AUTO) 9.8 %; NEUTROPHILS # (AUTO) 3.2 10^3/uL (1.5-6.6); NEUTROPHILS % (AUTO) 44.9 %; PLT - PLATELET COUNT 199 10^3/uL (130-450); RED BLOOD COUNT 3.53 10^6/uL (4.20-5.40); RED CELL DISTRIBUTION WIDTH 13.9 % (12.0-15.0)
[2021-01-08 05:17] LABS: CREATININE 0.8 mg/dL (0.4-1.0); POTASSIUM 3.4 mmol/L (3.5-5.0)
[2021-01-08] MEDS ORDERED: POTASSIUM CHLORIDE 20 MEQ TABLET PO ONE (07:18)
--- NOTE | 2021-01-08 07:23 | Discharge Plan ---
Discharge Plan Problem Reviewed?: Yes Disposition: Home, Self Care Condition: Stable Prescriptions: Azithromycin [Zithromax] 250 mg PO DAILY 2 Days #2 tablet Diet: Regular Activity Restrictions: Activity as Tolerated Health Concerns: You were admitted with difficulty breathing. Work-up included a chest x-ray which showed that you had bilateral bronchopneumonia. You were started on antibiotics. You did well over the 2 days of hospital stay. You are being discharged home with a prescription of azithromycin for a total of 2 pills to complete the antibiotic regimen. You take 1 p.o. on 01/09/21 and then the last pill on 12/28 4. You had a slight increase in troponin level. For this you underwent 2D echocardiogram. It showed that your heart function and heart valves were working well. You may feel tired for the next couple of days and not quite able to function normal capacity. This is not unusual following hospital stay. You advise to not exert yourself to hurt. With regards to other family members we advised universal precautions which would include covering your cough and using hand progressive care manager or washing your hands after coughing sneezing. If you develop a fever or ill breathing becomes increasingly difficult do not feel to return for reevaluation. This plan was explained to you to which you expressed understanding and are in agreement. Plan of Treatment: You were admitted with difficulty breathing. Work-up included a chest x-ray which showed that you had bilateral bronchopneumonia. You were started on antibiotics. You did well over the 2 days of hospital stay. You are being discharged home with a prescription of azithromycin for a total of 2 pills to complete the antibiotic regimen. You take 1 p.o. on 01/09/21 and then the last pill on 12/28 4. You had a slight increase in troponin level. For this you underwent 2D echocardiogram. It showed that your heart function and heart valves were working well. You may feel tired for the next couple of days and not quite able to function normal capacity. This is not unusual following hospital stay. You advise to not exert yourself to hurt. With regards to other family members we advised universal precautions which would include covering your cough and using hand progressive care manager or washing your hands after coughing sneezing. If you develop a fever or ill breathing becomes increasingly difficult do not feel to return for reevaluation. This plan was explained to you to which you expressed understanding and are in agreement. Care Goals: You were admitted with difficulty breathing. Work-up included a chest x-ray which showed that you had bilateral bronchopneumonia. You were started on antibiotics. You did well over the 2 days of hospital stay. You are being discharged home with a prescription of azithromycin for a total of 2 pills to complete the antibiotic regimen. You take 1 p.o. on 01/09/21 and then the last pill on 12/28 4. You had a slight increase in troponin level. For this you underwent 2D echocardiogram. It showed that your heart function and heart valves were working well. You may feel tired for the next couple of days and not quite able to function normal capacity. This is not unusual following hospital stay. You advise to not exert yourself to hurt. With regards to other family members we advised universal precautions which would include covering your cough and using hand progressive care manager or washing your hands after coughing sneezing. If you develop a fever or ill breathing becomes increasingly difficult do not feel to return for reevaluation. This plan was explained to you to which you expressed understanding and are in agreement. Assessment: You were admitted with difficulty breathing. Work-up included a chest x-ray which showed that you had bilateral bronchopneumonia. You were started on antibiotics. You did well over the 2 days of hospital stay. You are being discharged home with a prescription of azithromycin for a total of 2 pills to complete the antibiotic regimen. You take 1 p.o. on 01/09/21 and then the last pill on 12/28 4. You had a slight increase in troponin level. For this you underwent 2D echocardiogram. It showed that your heart function and heart valves were working well. You may feel tired for the next couple of days and not quite able to function normal capacity. This is not unusual following hospital stay. You advise to not exert yourself to hurt. With regards to other family members we advised universal precautions which would include covering your cough and using hand progressive care manager or washing your hands after coughing sneezing. If you develop a fever or ill breathing becomes increasingly difficult do not feel to return for reevaluation. This plan was explained to you to which you expressed understanding and are in agreement. No Smoking: If you smoke, Please STOP! Call for help. Follow-up with: BUBBA SPANGLER, MSN, LEGAL OFFICER [Primary Care Provider] -
--- NOTE | 2021-01-08 07:23 | DISCHARGE SUMMARY ---
Discharge Summary Admit Date: 01/06/21 Discharge Date: 01/08/21 Discharging Provider: Dayami Lindertu Code Status: Attempt Resuscitation Condition at Discharge: Stable Discharge Disposition: 01 Home, Self Care - DIAGNOSES Admission Diagnoses: Acute respiratory failure with hypoxia Bilateral bronchopneumonia Hyponatremia Elevated troponin Anemia Vapes Discharge Diagnoses with Status of Each Condition: Acute respiratory failure with hypoxia: Resolved Bilateral bronchopneumonia: Improving Hyponatremia: Resolved Elevated troponin: 2/2 Demand ischemia Anemia: Chronic Vapes: Chronic - HPI History of Present Illness: Per HPI: Patient is a 45-year-old female with history of anxiety for which she is on Seroquel at night. She presented to the ED with 2 days of upper respiratory symptoms including cough, hoarseness, sputum production, nasal congestion with nasal discharge and fatigue for which she underwent Covid testing on the day before admission. This came back negative. She continued to have symptoms and dyspnea so presented to the ED. In the ED her oxygen saturation was 86% on room air. She was wheezing, had crackles and tachypneic with a respiratory rate of 25. Checks x-ray showed CHF versus bilateral interstitial infiltrates. She had an elevated D-dimer and underwent a CT angio of the chest that showed no evidence of pulmonary embolism by the findings in both lungs are read as having bilateral bronchopneumonia. The patient was admitted to inpatient status for IV antibiotics which consisted of Rocephin and azithromycin. She also required supplemental oxygen. WBC at admission was 17.5. It was 7.0 on the day of discharge. The patient's respiratory status improved significantly with treatment. The following day she was off supplemental oxygen breathing comfortably on room air and speaking in full sentences. She still had mild crackles on the left lungs. She underwent a 2D echocardiogram on 01/07/21 The left ventricular size was normal the left ventricular wall thickness was tow ards the upper limit of normal to mildly increased. Overall left ventricular systolic function is normal with an ejection fraction of 55 to 60%. Normal diastolic. No regional wall motion abnormality. There was no evidence of aortic stenosis or aortic regurgitation. The RVSP was 40 mmHg. There was no pericardial effusion. There was no mass or thrombus. There was no pleural effusion noted. Patient's troponin initially was 56. This was trended to 60 and then 31. Is suspected this was likely demand from her acute respiratory failure related to an intrinsic respiratory cause. She was discharged home with 2 days worth of azithromycin to 50 mg p.o. She was advised to return for evaluation if she becomes febrile and all her respiratory status worsened. She was advised to use standard precautions around family members to include covering her cough and using hand classification clerk or washing her hands after coughing sneezing. She expressed understanding and was agreeable to this plan. Consequently she is being discharged today 01/08/21 - ALLERGIES Allergies/Adverse Reactions: Allergies Allergy/AdvReac Type Severity Reaction Status Date / Time No Known Drug Allergies Allergy Verified 01/06/21 16:44 - MEDICATIONS Home Medications: Ambulatory Orders Medication Instructions Recorded Confirmed Escitalopram Oxalate [Lexapro] 20 mg PO DAILY 01/07/21 01/07/21 Fluticasone [Flonase] 1 spray BALDEMAR BID 01/07/21 01/07/21 Omeprazole [PriLOSEC] 20 mg PO DAILY 01/07/21 01/07/21 QUEtiapine [SEROquel] 100 mg PO HS 01/07/21 01/07/21 Topiramate [Topamax] 25 mg PO DAILY 01/07/21 01/07/21 Tretinoin/Emollient Base 1 appful TOP HS 01/07/21 01/07/21 [Tretinoin 0.05% Emollient Crm] Valacyclovir HCl [Valtrex] 1,000 mg PO DAILY 01/07/21 01/07/21 Azithromycin [Zithromax] 250 mg PO DAILY 2 Days #2 tablet 01/08/21 - PHYSICAL EXAM AT DISCHARGE General Appearance: positive: No acute distress, Alert Eyes Bilateral: positive: PERRL, EOMI ENT: positive: No signs of dehydration Neck: positive: No JVD, Trachea midline Respiratory: positive: Chest non-tender, No respiratory distress, Breath sounds nml, Other (coarse breath sounds but no wheezing or rhonchi) Cardiovascular: positive: Regular rate & rhythm, No murmur Abdomen: positive: Non-tender, No organomegaly, Nml bowel sounds, No distention. negative: Guarding, Rebound Back: positive: Nml inspection Skin: positive: Color nml, No rash, Warm, Dry Extremities: positive: Non-tender, Full ROM, Nml appearance, No pedal edema Neurologic/Psychiatric: positive: Oriented x3, Mood/affect nml - LABS Result Diagrams: 01/08/21 03:56 01/08/21 03:56 - TIME SPENT Time Spent in Discharge (Minutes): 20
[2021-01-08 08:23] VITALS: BP 133/92
[2021-01-08] MEDS: cefTRIAXone 2 GM in SODIUM CHLORIDE 0.9% MINIBAG 100 ML IV SCH (09:16)
[2021-01-08] MEDS: AZITHROMYCIN 250 MG TABLET PO SCH (09:16)
[2021-01-08] MEDS: guaiFENesin 600 MG TABLET PO SCH (09:16)
[2021-01-08] MEDS: FAMOTIDINE 20 MG TABLET PO SCH (09:17)
== END 2021-01-08 11:57 | disposition home or self-care (01) | DRG 193 ==
LOC: ED 16:36 → MS3 20:37
PROVIDERS: ADMIT Internal Medicine; ATTEND Internal Medicine
DX: J18.0 Bronchopneumonia, unspecified organism (principal); J96.01 Acute respiratory failure with hypoxia; E87.6 Hypokalemia; D64.9 Anemia, unspecified; F17.290 Nicotine dependence, other tobacco product, uncomplicated; F41.9 Anxiety disorder, unspecified; Z20.822 Contact with and (suspected) exposure to COVID-19; F10.11 Alcohol abuse, in remission; Z79.899 Other long term (current) drug therapy
CPT/HCPCS: 0202U; 36415; 71045; 71275; 80048; 80053; 81001; 82803; 83605; 83690; 83735; 83880; 84484; 85025; 85379; 87040; 93005; 93306; 94640; 96374; 99284; 99285; A9270; Q9967; 81003; 87086

== ENCOUNTER 2021-02-06 13:15 | Outpatient (CLI) | payer MEDICAID ==
--- NOTE | 2021-02-06 13:40 | XRAY Report ---
PROCEDURE: Chest 2 View X-Ray INDICATIONS: Cough TECHNIQUE: 2 view(s) of the chest. COMPARISON: 01/06/2021. FINDINGS: Surgical changes and devices: None. Lungs and pleura: No pleural effusions or pneumothorax. Lungs are clear. Mediastinum: Mediastinal contours are normal. Heart size is normal. Bones and chest wall: No suspicious bony abnormalities. Soft tissues appear unremarkable. IMPRESSION: No acute cardiopulmonary process demonstrated radiographically. Reviewed by: Jim Garcia MD on 02/06/2021 1:39 PM PDT Approved by: Jim Garcia MD on 02/06/2021 1:39 PM PDT Station ID: [id number]
== END 2021-02-06 13:16 | disposition home or self-care (01) ==
LOC: DI.N 13:15
PROVIDERS: ATTEND Family Medicine
DX: R05 Cough (principal); Z20.822 Contact with and (suspected) exposure to COVID-19